=== PATIENT | female | born 1985 | race African-American/Black ===

== ENCOUNTER 2020-07-17 12:41 | Emergency (ER) | payer MEDICAID, SELFPAY ==
[2020-07-17 12:45] VITALS: BP 170/90; PULSE 75; RESP 17; TEMP 36.6; O2SAT 100
--- NOTE | 2020-07-17 13:03 | PC.NURSE ---
spoke with Dr Bailey about patient, orders given.
[2020-07-17 13:35] LABS: Basophils Absolute Auto 0.1 K/mm3 (0.0-0.1); Basophils Percent Auto 0.9 % (0.2-1.2); Eosinophils Absolute Auto 0.1 K/mm3 (0-0.3); Eosinophils Percent Auto 1.9 % (0-4.4); Hematocrit 26.2 % (37.0-47.0); Hemoglobin 8.1 g/dL (12.0-15.0); Immature Granulocyte Absolute 0.02 K/mm3 (0.00-0.031); Immature Granulocyte Percent A 0.4 % (0-0.5); Lymphocytes Absolute Auto 1.88 K/mm3 (0.9-3.2); Lymphocytes Percent Auto 35.3 % (18.3-44.2); Mean Corpuscular HGB Conc 30.9 g/dl (32-36); Mean Corpuscular Hemoglobin 25.5 pg (26-34); Mean Corpuscular Volume 82.4 fl (80-100); Mean Platelet Volume 10.3 fl (7.4-10.4); Monocytes Absolute Auto 0.4 K/mm3 (0.1-0.6); Monocytes Percent Auto 6.8 % (2.6-8.5); Neutrophils Absolute Auto 2.9 K/mm3 (1.3-6.7); Neutrophils Percent Auto 54.7 % (45.5-73.1); Nucleated Red Blood Cells Perc 0.4 % (0.0-0.2); Platelet Count Result 398 k/mm3 (150-375); Red Blood Count 3.18 M/mm3 (4.2-5.4); Red Cell Distribution Width 21.2 % (11.5-14.5); White Blood Count 5.3 K/mm3 (4.5-10.0)
[2020-07-17 13:40] LABS: Anion Gap 12 mmol/L (8-16); Blood Urea Nitrogen 8 mg/dL (7-17); Calcium 8.9 mg/dL (8.4-10.2); Carbon Dioxide 24 mmol/L (22-30); Chloride 104 mmol/L (98-107); Estimated CRCL calculation 87 ml/min; Estimated Glomerular Filt Rate > 60; Glucose 99 mg/dL (65-105); Potassium 3.6 mmol/L (3.4-5.0); Sodium 140 mmol/L (137-145)
--- NOTE | 2020-07-17 14:03 | ED.RECABL ---
HPI - Recheck/Abnormal Lab/Rx General Chief Complaint: Recheck/Abnormal Lab/Rx Stated Complaint: possibly needing blood??? Time Seen by Provider: 07/17/20 13:54 History of Present Illness HPI narrative: 35 you female w/ h/o beto bautista to the ED for fatigue. For about the past 4 days she has felt fatigued, weak, and had day time sleepiness. This is associated with mild MCCANN. She is concerned that she may need a blood transfusion. She denies any source of significant blood loss. She is unsure of the cause of her past anemia. Related Data Allergies Allergy/AdvReac Type Severity Reaction Status Date / Time Penicillins Allergy Swelling Verified 07/17/20 14:12 of Lip/Tongue/Throat Review of Systems Review of Systems: All systems reviewed & are unremarkable except as noted in HPI and below Constitutional: Constitutional: Reports fatigue, Denies fever(s) and Reports weakness Cardiovascular: Cardiovascular: Denies chest pain Respiratory: Respiratory: Denies cough Gastrointestinal: Gastrointestinal: Denies abdominal pain and Denies nausea Genitourinary: Genitourinary: Denies hematuria and Denies dysuria Musculoskeletal: Musculoskeletal: Denies back pain Integumentary/Breasts: Skin/Breast: Denies rash Neurologic: Denies dizziness and Denies focal weakness Hematologic/Lymphatic: Hematologic/Lymphatic: Denies easy bleeding and Denies easy bruising PMFSH Past Medical History Medical History (Updated 08/04/20 @ 15:35 by Boris Cordero MD) Anemia Social History Social History Gender identity (if verbalized by the patient): Female Exam Const: General: healthy appearing, no acute distress and alert Orientation/consciousness: patient oriented x3 HENMT: Head: normal to inspection Neck: Neck: normal visual inspection and no lymphadenopathy Chest: Chest palpation & inspection: no tenderness Resp: Effort & Inspection: normal respiratory effort Auscultation: clear to auscultation bilaterally, no rales, no rhonchi and no wheezes Cardio: Jugular venous distension: no JVD Rate: regular rate Rhythm: regular rhythm Heart sounds: no murmurs GI: Inspection: non-distended GI Palp: Yes Soft to palpation and No Tenderness to palpation present (GI) Skin: General skin exam: normal color Neuro: General: patient oriented x3 and moves all extremities Speech: normal speech Extrem: General: no edema Psych: Appearance: well kempt Affect: normal affect Course Vital Signs Vital signs: Vital Signs Temperature 36.6 C 07/17/20 12:45 Pulse Rate 75 07/17/20 12:45 Respiratory Rate 17 07/17/20 12:45 Blood Pressure 170/90 H 07/17/20 12:45 Pulse Oximetry 100 07/17/20 12:45 Temperature 36.6 C 07/17/20 12:45 Pulse Rate 84 07/17/20 15:30 Respiratory Rate 18 07/17/20 15:30 Blood Pressure 160/89 H 07/17/20 15:30 Pulse Oximetry 100 07/17/20 15:30 MDM - Recheck/Abnormal Lab/Rx MDM Narrative Medical decision making narrative: She has moderate anemia. No indication for transfusion at this time. I will suggest resuming iron supplementation. Medical Records Attestation: I reviewed the patient's medical records. Lab Data Attestation: I reviewed the patient's lab results. Result diagrams: 07/17/20 13:07 07/17/20 13:07 Labs: Lab Results 07/17/20 07/17/20 Range/Units 13:07 13:07 WBC 5.3 (4.5-10.0) K/mm3 RBC 3.18 L (4.2-5.4) M/mm3 Hgb 8.1 L (12.0-15.0) g/dL Hct 26.2 L (37.0-47.0) % MCV 82.4 (80-100) fl MCH 25.5 L (26-34) pg MCHC 30.9 L (32-36) g/dl RDW 21.2 H (11.5-14.5) % Plt Count 398 H (150-375) k/mm3 MPV 10.3 (7.4-10.4) fl Immature Gran % (Auto) 0.4 (0-0.5) % Neut % (Auto) 54.7 (45.5-73.1) % Lymph % (Auto) 35.3 (18.3-44.2) % Moffat % (Auto) 6.8 (2.6-8.5) % Eos % (Auto) 1.9 (0-4.4) % Baso % (Auto) 0.9 (0.2-1.2) % Lymph # (Auto) 1.88 (0.9-3.2) K/mm3 Moffat # (Auto) 0.4
[2020-07-17 15:30] VITALS: BP 160/89; PULSE 84; RESP 18; O2SAT 100
== END 2020-07-17 15:35 | disposition home or self-care (01) ==
PROVIDERS: Emergency Medicine; Emergency Provider Emergency Medicine
DX: D64.9 Anemia, unspecified (principal); R53.83 Other fatigue; I10 Essential (primary) hypertension
CPT/HCPCS: 36415; 80048; 85025; 99283